=== PATIENT | male | born 1965 | race Asian ===

== ENCOUNTER 2018-12-22 07:57 | Emergency (ER) | payer BC ==
[~2018-12-22] VITALS: Ht 175.3 cm; Wt 82.1 kg
[2018-12-22 08:00] VITALS: BP 137/78
--- NOTE | 2018-12-22 08:10 | NUR ---
ED Nurse Note: PT WALKED IN DUE TO LEFT EYE PAIN AND SWELLING AND BLURRING OF VISION FATER GETTING HIT WITH A SHUTTLE COCK WHILE PLAYING [employer] 30 MINS AGO. AAO X4, AMBULATORY AND NOTED LEFT EYE SWELLING AND PT HOLDING HIS LEFT EYE. NO APPARENT BLEEDING AT THIS TIME.
--- NOTE | 2018-12-22 08:19 | Emergency Room Report ---
History of Present Illness General Chief Complaint: Eye Problems Source: Patient Present Illness HPI 53-year-old male comes to the ER for complaints of having left eye pain and blurred vision status post being hit in the eye while playing badminton and being hit with a racquet 30 minutes prior to arrival. Pain is constant, mild to moderate, nonradiating, with associated tearing and blurred vision. He has not had any medications for symptoms. Does report he blood slightly, but denies bleeding from his eye, just his leg, and reports no diplopia. Allergies: Coded Allergies: No Known Allergies (Unverified , 12/22/18) Patient History Past Medical History: see triage record Reviewed Nursing Documentation: PMH: Agreed; PSxH: Agreed Nursing Documentation-PMH Past Medical History: No Stated History Review of Systems All Other Systems: negative except mentioned in HPI Physical Exam Vital Signs Date Time Temp Pulse Resp B/P (MAP) Pulse Ox O2 Delivery O2 Flow Rate FiO2 12/22/18 08:00 98.2 98 16 137/78 (97) 99 Room Air Sp02 EP Interpretation: reviewed, normal General Appearance: no apparent distress, alert, non-toxic Head: normocephalic, other - Left periorbital ecchymosis Eyes: left eye fluoroscene uptake - None, negative Mary sign, left eye Scleral Injection; bilateral eye normal inspection, bilateral eye PERRL, bilateral eye EOMI, bilateral eye other - Left eye with 1 cm lateral aspect superior lid laceration very superficial just below the brow no active bleeding or contamination ENT: normal ENT inspection, hearing grossly normal, normal pharynx, no angioedema, normal voice, moist mucus membranes Neck: normal inspection, full range of motion, supple, supple/symm/no masses Respiratory: chest non-tender, lungs clear, normal breath sounds, chest symmetrical, palpation of chest normal Cardiovascular #1: normal peripheral pulses, regular rate, rhythm Cardiovascular #2: 2+ radial (R), 2+ radial (L) Gastrointestinal: normal inspection, non tender, soft, no mass, no guarding, no rebound Rectal: deferred Genitourinary: normal inspection, no CVA tenderness Musculoskeletal: back normal, gait/station normal, normal range of motion, non- tender Neurologic: alert, responsive, road machine operator III-XII nml as tested, motor strength/tone normal, sensory intact, speech normal Psychiatric: judgement/insight normal, memory normal, mood/affect normal Lymphatic: no adenopathy Procedures Laceration/Wound Repair Laceration/Wound Repair : Consent: Verbal Wound Location: face Wound's Depth, Shape: superficial Wound Length (cm): 1 Wound Explored: clean Irrigated w/ Saline (ccs): 20 Betadine Prep?: No Anesthesia: other - On Wound Debrided: None Wound Repaired With: sutures Suture Size/Type: nylon, other - 7.0 Number of Sutures: 1 Layer Closure?: No Sterile Dressing Applied?: Yes Complications: None Eye Procedure Eye Procedure : Alcaine Drops Administered: Yes - tetracaine and fluorescein + ferro lamp exam: no uptake Patient Tolerated: Well Complications: None Medical Decision Making Diagnostic Impression: Primary Impression: Corneal abrasion Additional Impression: Eyelid laceration, left ER Course Patient was given a tetanus booster, he does not wear contact lenses, had fluorescein and tetracaine given, there was no obvious evidence of uptake, and patient will be discharged with analgesics, as well as topical antibiotics although there was no obvious corneal abrasion, I did have high suspicion, and he will be discharged with instructions to follow-up with an foreign collection clerk for reevaluation in 1 to 2 days. Diagnosis is suspected corneal abrasion, no evidence for globe penetration. Eyelid laceration repaired, removal in 5 days recommended Last Vital Signs Date Time Temp Pulse Resp B/P (MAP) Pulse Ox O2 Delivery O2 Flow Rate FiO2 12/22/18 08:00 98.2 98 16 137/78 (97) 99 Room Air Disposition: HOME, SELF-CARE Condition: Stable Scripts No Active Prescriptions or Reported Meds RAO ECHOLS M.D Dec 22, 2018 08:19
[2018-12-22] MEDS ORDERED: Tetracaine 0.5% Opth 4ml Soln LEFT EYE ONE (08:30)
[2018-12-22] MEDS ORDERED: Tetanus/Diptheria/Pertussis IM ONE (08:30)
[2018-12-22] MEDS ORDERED: Fluorescein Strips LEFT EYE ONE (08:30)
--- NOTE | 2018-12-22 09:19 | NUR ---
ED Nurse Note: Ice Pack applied on pt's left eye.
[2018-12-22] MEDS ORDERED: ERYTHROMYCIN3.5 GM LEFT EYE (09:24)
[2018-12-22] MEDS ORDERED: CEPHALEXIN500 MG ORAL (09:24)
[2018-12-22 09:42] VITALS: BP 128/75
--- NOTE | 2018-12-22 09:42 | NUR ---
ER DISCHARGE NOTE: Patient is cleared to be discharged per ERMD, pt is aox4, on room air, with stable vital signs. pt was given dc and prescription instructions, pt was able to verbalize understanding, pt id band removed. pt is able to ambulate with steady gait. pt took all belongings and left with his family member.
== END 2018-12-22 09:42 | disposition home or self-care (01) ==
LOC: EMR 08:30
DX: S01.112A Laceration without foreign body of left eyelid and periocular area, initial encounter (principal); S05.02XA Injury of conjunctiva and corneal abrasion without foreign body, left eye, initial encounter; Z23 Encounter for immunization; W20.8XXA Other cause of strike by thrown, projected or falling object, initial encounter; Y93.73 Activity, racquet and hand sports; Y92.9 Unspecified place or not applicable
CPT/HCPCS: 90471; 90715; 99283